=== PATIENT | female | born 1970 | race Caucasian/White ===

== ENCOUNTER 2016-10-16 22:20 | Emergency (ER) | payer MEDICARE ==
[~2016-10-16] VITALS: Ht 175.3 cm; Wt 82.6 kg
[~2016-10-16 22:20] MED LIST: ASPI325T4 PO; CITA20TA5 PO; MELO-156 PO
[2016-10-16] MEDS ORDERED: IV NORMAL SALINE 1000ML BAG 1,000 ML IV SCH (23:00)
[2016-10-16 23:12] LABS: CALCIUM 9.1 mg/dL (8.5-10.1); CREATININE 0.8 mg/dL (0.6-1.0); GFR 77.2; POTASSIUM 3.9 mmol/L (3.5-5.1)
[2016-10-16] MEDS ORDERED: PROCHLORPERAZINE 10 MG/2 ML VIAL. IV ONE (23:15)
[2016-10-16] MEDS ORDERED: KETOROLAC TROMETHAMINE 30 MG/ML SYRINGE. IV ONE (23:15)
[2016-10-16] MEDS ORDERED: DIPHENHYDRAMINE 50 MG/ML VIAL IVP ONE (23:15)
[2016-10-17] MEDS ORDERED: ONDA4TAB10 SL (00:22)
--- NOTE | 2016-10-17 00:23 | PHYS DOC ---
Past Medical History Past Medical History: Stroke Past Surgical History: Tubal ligation Additional Past Surgical Histo: Intravascular thrombolysis Additional Information: PPD Alcohol Use: None Drug Use: None Adult General Chief Complaint Chief Complaint: HEAD INJURY/TRAUMA HPI HPI Patient is a 45 year old female who presents with headache, nausea and vomiting , and diarrhea. She has pain to the top of her right head since hitting her head on her freezer door this afternoon. She did not have that much pain at the time of the incident, but she has gradually developed bilateral occipital headache that is throbbing. She also has developed multiple episodes of nonbloody nonbilious emesis and nonbloody diarrhea a few hours after she ate dinner. No one else is sick from dinner. She has chills and sweats. She denies cough, chest pain, myalgia, rhinorrhea, nasal congestion, sore throat, abdominal pain, vision changes, photophobia, phonophobia, dizziness. No recent travel or antibiotics. She denies dizziness or impaired coordination or impaired ambulation. Review of Systems Review of Systems Constitutional: Denies measured fever [] Eyes: Denies change in visual acuity, redness, or eye pain [] HENT: Denies nasal congestion or sore throat [] Respiratory: Denies cough or shortness of breath [] Cardiovascular: No additional information not addressed in HPI [] GI: Denies abdominal pain or bloody stools [] : Denies dysuria or hematuria [] Musculoskeletal: Denies back pain or joint pain [] Integument: Denies rash or skin lesions [] Neurologic: Denies focal weakness or sensory changes [] Endocrine: Denies polyuria or polydipsia [] Current Medications Current Medications Current Medications Medications (Trade) Dose Ordered Sig/Dereck Start Time Stop Time Status Last Admin Dose Admin Diphenhydramine HCl (Benadryl) 25 mg 1X ONCE 10/16/16 23:15 10/16/16 23:16 DC 10/16/16 23:21 25 MG Ketorolac Tromethamine (Toradol) 15 mg 1X ONCE 10/16/16 23:15 10/16/16 23:16 DC 10/16/16 23:21 15 MG Prochlorperazine Edisylate (Compazine) 10 mg 1X ONCE 10/16/16 23:15 10/16/16 23:16 DC 10/16/16 23:13 10 MG Sodium Chloride (Iv Sodium Chloride 0.9% 1000ml Bag) 1,000 ml @ 1,000 mls/hr Q1H 10/16/16 23:00 10/16/16 23:59 DC 10/16/16 23:13 1,000 MLS/HR Allergies Allergies Allergies Coded Allergies Type Severity Reaction Last Updated Verified codeine Allergy Unknown Unknown 12/27/14 No Physical Exam Physical Exam Constitutional: Well developed, well nourished, no acute distress, non-toxic appearance. [] HENT: Normocephalic, atraumatic, bilateral external ears normal, oropharynx moist, no oral exudates, nose normal. [] Eyes: PERRLA, EOMI. [] Neck: Normal range of motion, supple. [] Cardiovascular:Heart rate regular rhythm [] Lungs & Thorax: Bilateral breath sounds clear to auscultation [] Abdomen: Bowel sounds normal, soft, no tenderness. [] Skin: Warm, dry, no erythema, no rash. [] Back: No tenderness, no CVA tenderness. [] Extremities: ROM intact, no edema. [] Neurologic: Alert and oriented X 3, normal motor function, normal sensory function, no focal deficits noted, cranial nerves II through XII intact, no pronator drift, no past pointing. [] Psychologic: Affect normal, judgement normal, mood normal. [] Current Patient Data Vital Signs Vital Signs Date Time Temp Pulse Resp B/P Pulse Ox O2 Delivery O2 Flow Rate FiO2 10/17/16 00:35 80 20 110/55 98 10/16/16 22:30 98.4 Room Air 98.4 Lab Values Laboratory Tests Test 10/16/16 22:40 Sodium Level 141mmol/L (136-145) Potassium Level 3.9mmol/L (3.5-5.1) Chloride Level 105mmol/L (98-107) Carbon Dioxide Level 25mmol/L (21-32) Anion Gap 11 (6-14) Blood Urea Nitrogen 12mg/dL (7-20) Creatinine 0.8mg/dL (0.6-1.0) Estimated GFR (Cockcroft-Gault) 77.2 Glucose Level 124mg/dL (70-99) H Calcium Level 9.1mg/dL (8.5-10.1) Laboratory Tests 10/16/16 22:40 Course & Med Decision Making Course & Med Decision Making Pertinent Labs and Imaging studies reviewed. (See chart for details) Workup is unremarkable. She is feeling back to baseline after medications and would like to go home. She is tolerating oral intake. Return precautions given. She understands and agrees with plan. Dragon Disclaimer Dragon Disclaimer This electronic medical record was generated, in whole or in part, using a voice recognition dictation system. Departure Departure Impression: Primary Impression: Headache Additional Impression: Nausea vomiting and diarrhea Disposition: HOME, SELF-CARE Condition: STABLE Referrals: WES DAVIS MD (PCP) Patient Instructions: Nausea and Vomiting, [id number] Additional Instructions: Take Zofran as needed for nausea. Follow-up with your primary care doctor. Return for any concerns. Scripts Ondansetron (Zofran Odt)4 Mg Tab.rapdis1 Tab SL Q8HRS #10 TAB Prov:Kiarra LYLE MD 10/17/16 Problem Qualifiers Primary Impression: Headache Headache type: unspecified Headache chronicity pattern: acute headache Intractability: not intractable Qualified Code: R51 - Headache Kiarra LYLE MD Oct 17, 2016 00:22
[2016-10-17 00:35] VITALS: BP 110/55
== END 2016-10-17 00:40 | disposition home or self-care (01) ==
LOC: ER 22:20
DX: R51 Headache (principal); R11.2 Nausea with vomiting, unspecified; R19.7 Diarrhea, unspecified; F17.200 Nicotine dependence, unspecified, uncomplicated; Z86.73 Personal history of transient ischemic attack (TIA), and cerebral infarction without residual deficits; Z98.51 Tubal ligation status; Z88.5 Allergy status to narcotic agent
CPT/HCPCS: 36415; 80048; 96361; 96374; 96375; 99284; J0780; J1200; J1885; J7030

== ENCOUNTER 2016-11-22 17:24 | Emergency (ER) | payer MEDICARE ==
[~2016-11-22] VITALS: Ht 175.3 cm; Wt 82.6 kg
[~2016-11-22 17:24] MED LIST changes: +ONDA4TAB10 SL
[2016-11-22 17:34] VITALS: BP 146/64
--- NOTE | 2016-11-22 18:53 | PHYS DOC ---
Past Medical History Past Medical History: Anxiety, Depression, Stroke Past Surgical History: Tubal ligation Additional Past Surgical Histo: Intravascular thrombolysis Smoking: Less than 1pk/day Alcohol Use: Occasionally Drug Use: None Adult General Chief Complaint Chief Complaint: LACERATION/AVULSION HPI HPI Patient is a 46 year old female who presents with left thumb laceration at 1400. Patient was a target practice using a pistol. She was cocking the gun when she pinched her thumb in the slide. Her tetanus immunization is up-to- date. Her PCP is Dr. Wes Shepard. Review of Systems Review of Systems Constitutional: Denies fever or chills. [] Musculoskeletal: Denies back pain or joint pain. Reports left thumb pain. Integument: Denies rash or skin lesions. Reports left thumb laceration. Neurologic: Denies focal weakness or sensory changes. [] Current Medications Current Medications Current Medications Medications (Trade) Dose Ordered Sig/Dereck Start Time Stop Time Status Last Admin Dose Admin Lidocaine/Sodium Bicarbonate (Buffered Lidocaine 1%) 20 ml 1X ONCE 11/22/16 19:00 11/22/16 19:01 DC 11/22/16 18:58 20 ML Allergies Allergies Allergies Coded Allergies Type Severity Reaction Last Updated Verified codeine Allergy Unknown Unknown 12/27/14 No Physical Exam Physical Exam Constitutional: Well developed, well nourished, no acute distress, non-toxic appearance. [] HENT: Normocephalic, atraumatic, oropharynx moist. [] Eyes: PERRLA, EOMI, conjunctiva normal, no discharge. [] Skin: Warm, dry, no erythema, no rash. There is a 1 cm laceration on the dorsal side of the left thumb just distal to the MCP joint. Extremities: Left thumb tenderness, ROM intact, no edema. 2+ radial and ulnar pulses. Less than 2 second capillary refill distally. Light touch sensation intact distally. Neurologic: Alert and oriented X 3, normal motor function, normal sensory function, no focal deficits noted. [] Psychologic: Affect normal, judgement normal, mood normal. [] Current Patient Data Vital Signs Vital Signs Date Time Temp Pulse Resp B/P Pulse Ox O2 Delivery O2 Flow Rate FiO2 11/22/16 17:34 98.6 116 20 98 Room Air 98.6 EKG EKG [] Radiology/Procedures Radiology/Procedures Three-view x-ray of the left hand and thumb were reviewed and interpreted by myself with Dr. Rider. There are no acute fractures or dislocations. Course & Med Decision Making Course & Med Decision Making Pertinent Labs and Imaging studies reviewed. (See chart for details) Patient presents with a 1 cm laceration to the base of the left thumb on the dorsal side just distal to the MCP joint. The wound was anesthetized with 1% lidocaine buffered. The wound was explored for foreign bodies and none were identified. There was no tendon laceration. The wound was cleaned using chlorhexidine scrub and copiously irrigated using normal saline. Wound edges were well approximated using 2 simple interrupted sutures using 5-0 nylon. The patient tolerated the procedure well and bleeding was controlled. A sterile dressing was applied. Dragon Disclaimer Dragon Disclaimer This electronic medical record was generated, in whole or in part, using a voice recognition dictation system. Departure Departure Impression: Primary Impression: Finger laceration Disposition: 01 HOME, SELF-CARE Condition: IMPROVED Referrals: WES SHEPARD MD (PCP) Additional Instructions: The patient was given down time discharge instructions. Problem Qualifiers Primary Impression: Finger laceration Encounter type: initial encounter Qualified Code: S61.219A - Laceration without foreign body of unspecified finger without damage to nail, initial encounter LUIS DANIEL BROOKE Nov 22, 2016 18:53
[2016-11-22] MEDS ORDERED: LIDOCAINE 1% / SOD BICARB 8.4% 20 ML VIAL. IJ ONE (19:00)
--- NOTE | 2016-11-23 10:00 | RAD ---
Examination: 3 views of the left thumb History: History of injury with laceration to the base of the thumb Comparison: None available Findings: The alignment of the first metacarpophalangeal joint, interphalangeal joint grossly appears unremarkable. Mild soft tissue swelling identified the base of the thumb. Impression: No acute osseous findings.
== END 2016-11-22 20:36 | disposition home or self-care (01) ==
LOC: ER 17:24
DX: S61.012A Laceration without foreign body of left thumb without damage to nail, initial encounter (principal); F17.200 Nicotine dependence, unspecified, uncomplicated; Z86.73 Personal history of transient ischemic attack (TIA), and cerebral infarction without residual deficits; W23.1XXA Caught, crushed, jammed, or pinched between stationary objects, initial encounter; Y93.89 Activity, other specified; Y92.89 Other specified places as the place of occurrence of the external cause; Y99.8 Other external cause status
CPT/HCPCS: 12001; 73140; 99284-25

== ENCOUNTER 2017-10-08 03:25 | Emergency (ER) | payer MEDICARE ==
[2017-10-08] MEDS: IV NORMAL SALINE 1000ML BAG 1,000 ML IV (03:53)
[2017-10-08] MEDS: METOCLOPRAMIDE HCL 10 MG/2 ML VIAL. IV (04:04)
[2017-10-08] MEDS: KETOROLAC 30 MG/ML INJ. IV (04:06)
[2017-10-08] MEDS: DEXAMETHASONE SOD PHOS 20 MG/5 ML VIAL. IV (04:08)
[2017-10-08] MEDS: diphenhydrAMINE 50 MG/ML VIAL IVP (04:11)
== END 2017-10-08 05:15 | disposition home or self-care (01) ==
LOC: ER 03:25
DX: G43.909 Migraine, unspecified, not intractable, without status migrainosus (principal); Z86.73 Personal history of transient ischemic attack (TIA), and cerebral infarction without residual deficits; Z88.5 Allergy status to narcotic agent
CPT/HCPCS: 96361; 96374; 96375; 99284-25; J1100; J1200; J1885; J2765; J7030

== ENCOUNTER 2017-10-30 10:21 | Emergency (ER) | payer MEDICARE ==
[2017-10-30 10:45] LABS: URINE HCG POC HCG NEGATIVE (Negative)
[2017-10-30 10:52] LABS: BILIRUBIN,URINE NEGATIVE (NEG); CLARITY,URINE CLEAR; COLOR,URINE YELLOW; GLUCOSE,URINE NEGATIVE (NEG); NITRITE,URINE NEGATIVE (NEG); PROTEIN,URINE NEGATIVE (NEG-TRACE); UROBILINOGEN,URINE 0.2 mg/dL (0.2 mg/dL)
[2017-10-30 11:00] LABS: ADD MAN DIFF? NO
[2017-10-30 11:04] LABS: BASO # 0.1 x10^3/uL (0.0-0.2); BASO % 1 % (0-3); EOS # 0.3 x10^3/uL (0.0-0.7); EOS % 3 % (0-3); HEMATOCRIT 42.7 % (36.0-47.0); HEMOGLOBIN 14.2 g/dL (12.0-15.5); LYMPH # 2.4 x10^3/uL (1.0-4.8); LYMPH % 32 % (24-48); MEAN CORPUSCULAR HEMOGLOBIN 30 pg (25-35); MEAN CORPUSCULAR HGB CONC 33 g/dL (31-37); MEAN CORPUSCULAR VOLUME 89 fL (79-100); MONO # 0.6 x10^3/uL (0.0-1.1); MONO % 8 % (0-9); NEUT # 4.2 x10^3uL (1.8-7.7); NEUT % 55 % (31-73); PLATELET COUNT 377 x10^3/uL (140-400); RED CELL DISTRIBUTION WIDTH 13.8 % (11.5-14.5); WHITE BLOOD COUNT 7.5 x10^3/uL (4.0-11.0)
[2017-10-30 11:24] LABS: ANION GAP 7 (6-14); BLOOD UREA NITROGEN 10 mg/dL (7-20); BUN/CREATININE RATIO 13 (6-20); CALCIUM 9.4 mg/dL (8.5-10.1); CARBON DIOXIDE 29 mmol/L (21-32); CHLORIDE 103 mmol/L (98-107); CREATININE 0.8 mg/dL (0.6-1.0); GFR 76.9; GLUCOSE 105 mg/dL (70-99); POTASSIUM 4.2 mmol/L (3.5-5.1); SODIUM 139 mmol/L (136-145)
[2017-10-30 11:29] LABS: ALBUMIN 3.6 g/dL (3.4-5.0); ALK PHOS 106 U/L (46-116); ALT (SGPT) 31 U/L (14-59); AST (SGOT) 20 U/L (15-37); LIPASE 116 U/L (73-393); TOTAL BILIRUBIN 0.9 mg/dL (0.2-1.0); TOTAL PROTEIN 7.2 g/dL (6.4-8.2)
[2017-10-30 12:03] LABS: BACTERIA,URINE 0 /HPF (0-FEW); SQUAMOUS EPITHELIAL CELL,UR FEW /LPF; WBC,URINE 0 /HPF (0-4)
[2017-10-30] MEDS: ONDANSETRON PF 4 MG/2 ML VIAL. IV ×2 (12:04)
[2017-10-30] MEDS: HYDROmorphone 2 MG/ML VIAL IV/SQ ×2 (12:04)
[2017-10-30] MEDS: IV NORMAL SALINE 1000ML BAG 1,000 ML IV ×2 (12:05)
== END 2017-10-30 13:34 | disposition home or self-care (01) ==
LOC: ER 10:21
DX: R10.9 Unspecified abdominal pain (principal); F41.9 Anxiety disorder, unspecified; F32.9 Major depressive disorder, single episode, unspecified; F17.200 Nicotine dependence, unspecified, uncomplicated; Z86.73 Personal history of transient ischemic attack (TIA), and cerebral infarction without residual deficits; Z88.5 Allergy status to narcotic agent
CPT/HCPCS: 36415; 74176; 80053; 81001; 81025; 83690; 85025; 96361; 96374; 96375; 99285-25; J1170; J2405; J7030

== ENCOUNTER → 2017-11-09 | Outpatient (CLI) | payer MEDICARE | END | disposition home or self-care (01) | LOC: US 06:59 | DX: K80.20 Calculus of gallbladder without cholecystitis without obstruction (principal) | CPT/HCPCS: 76700 ==

== ENCOUNTER 2017-11-26 06:54 | Day surgery (SDC) | payer MEDICARE ==
[~2017-11-26 06:54] MED LIST changes: -ASPI325T4 PO; -CITA20TA5 PO; +IOHEXOL 300 MG/ML 100ML VIAL.; -MELO-156 PO; -ONDA4TAB10 SL; +SURGICEL HEMOSTAT 4X8 EACH.
[2017-11-26] MEDS ORDERED: ONDANSETRON PF 4 MG/2 ML VIAL. IV (07:00)
[2017-11-26] MEDS ORDERED: PROCHLORPERAZINE 10 MG/2 ML VIAL. IV (07:00)
[2017-11-26] MEDS ORDERED: LIDOCAINE 1% PF 2 ML VIAL. ID (07:00)
[2017-11-26] MEDS ORDERED: fentaNYL PF VIAL 100 MCG/2 ML VIAL IV ×2 (07:00)
[2017-11-26] MEDS ORDERED: MORPHINE SULFATE 4 MG/ML DISP.SYRIN. IV (07:00)
[2017-11-26] MEDS: IV RINGERS,LACTATED 1000ML 1,000 ML IV (07:38)
[2017-11-26] MEDS ORDERED: fentaNYL PF VIAL 250 MCG/5 ML VIAL ×2 (08:09)
[2017-11-26] MEDS ORDERED: MIDAZOLAM HCL/PF 2 MG/2 ML VIAL. (08:09)
[2017-11-26 08:20] LABS: NEG OBC UR NEG; POS OBC UR POS; U PREG PATIENT NEGATIVE (NEG)
[2017-11-26] MEDS: BUPIVACAINE-EPI 0.25%-1:200000 50 ML VIAL. (08:38)
[2017-11-26] MEDS ORDERED: ONDANSETRON PF 4 MG/2 ML VIAL. (08:52)
[2017-11-26] MEDS ORDERED: PROPOFOL 20 ML IV (08:52)
[2017-11-26] MEDS ORDERED: DEXAMETHASONE SOD PHOS 20 MG/5 ML VIAL. (08:52)
[2017-11-26] MEDS ORDERED: NEOSTIGMINE 10 MG/10 ML VIAL. (08:54)
[2017-11-26] MEDS ORDERED: SEVOFLURANE 61 TO 120 MINUTES. IH (08:54)
[2017-11-26] MEDS ORDERED: GLYCOPYRROLATE 1 MG/5 ML VIAL. (08:55)
[2017-11-26] MEDS ORDERED: oxyCODONE/APAP 5/325 1 TAB TABLET PO ×2 (09:45)
[2017-11-26] MEDS: oxyCODONE/APAP 5/325 1 TAB TABLET PO (09:55)
== END 2017-11-26 10:52 | disposition home or self-care (01) ==
LOC: SURG 06:54
DX: K80.10 Calculus of gallbladder with chronic cholecystitis without obstruction (principal); E66.9 Obesity, unspecified; Z98.51 Tubal ligation status; F41.9 Anxiety disorder, unspecified; F32.9 Major depressive disorder, single episode, unspecified; F17.210 Nicotine dependence, cigarettes, uncomplicated
CPT/HCPCS: 47562; 81025; J0690; J1100; J2250; J2405; J2704; J2710; J3010; J3490; J7030; Q9967